=== PATIENT | female | born 1960 | race Caucasian/White ===

== ENCOUNTER 2017-02-06 20:03 | Emergency (ER) | payer OTHER, BC ==
[~2017-02-06] VITALS: Ht 160 cm; Wt 74.5 kg
[2017-02-06 20:05] VITALS: Ht 160 cm; Wt 74.5 kg
--- NOTE | 2017-02-06 20:22 | EMERGENCY ROOM VISIT NOTE ---
History Report prepared by Edilberto: Ami Manzo Under the Supervision of: Dr. Davion Bledsoe M.D. First contact with patient: 20:11 Chief Complaint: BACK PAIN Stated Complaint: MIDDLE BACK PAIN History of Present Illness The patient is a 56 year old female who presents to the Emergency Room with complaints of constant middle back pain beginning yesterday morning. The patient states that moving exacerbates the pain and that it does not radiate. She denies having numbness, weakness, chest pain, fevers, shortness of breath, as well as burning with urination and blood in urine. The patient denies any recent falls or trauma. She states that she has been taking 2 Advil every six hours which helps the pain. The patient states that she did have a bladder infection and that she finished her medication a week and a half ago. She states that she had a pituitary tumor. Source of History: patient Onset: yesterday morning Position: back Timing: constant Modifying Factors (Worsening): movement Associated Symptoms: No fevers, No chest pain, No SOB, No weakness, No numbness Review of Systems See HPI for pertinent positives & negatives. A total of 10 systems reviewed and were otherwise negative. Past Medical & Surgical Medical Problems: (1) Pituitary tumor Old medical records were reviewed. Nurse's notes were reviewed and I agree with. Family History No pertinent family history stated. Social History Smoking Status: Never Smoker Marital Status: Current/Historical Medications Scheduled Calcium-Magnesium W/ Vitamin D (Citracal Calcium+D Slow R), 1 TAB PO DAILY Hydrocortisone (Cortef), 5 MG PO DAILY Hydrocortisone (Cortef), 10 MG PO QAM Levothyroxine Sodium (Synthroid), 100 MCG PO DAILY Somatropin (Nutropin Aq Nuspin 5), 5 MG INJ DAILY Scheduled PRN Ibuprofen Tab (Advil), 400 MG PO Q6H PRN for Pain Oxycodone Immediate Rel Tab (Roxicodone Ir), 1-2 TAB PO Q4H PRN for Severe Pain Allergies Coded Allergies: Levofloxacin (Unverified Allergy, Severe, HEART RACES, 02/06/17) Penicillins (Unverified Allergy, Unknown, ., 02/06/17) TO YOUNG TO REMEMBER Meperidine (Unverified Adverse Reaction, Severe, VOMITING, 02/06/17) Physical Exam Vital Signs Date Time Temp Pulse Resp B/P (MAP) Pulse Ox O2 Delivery O2 Flow Rate FiO2 02/06/17 22:48 86 18 128/84 98 Room Air 02/06/17 22:45 36.7 89 16 128/82 97 02/06/17 20:05 36.7 89 16 128/82 97 Room Air Physical Exam General: Well developed well nourished middle-aged female who appears to be mildly uncomfortable. Pain exacerbates with movement. Breathing comfortably on room air. Normal speech HEENT: Normal cephalic atraumatic. Pupils are equal round and reactive to light. Extraocular movements are intact. Oropharynx is pink with moist mucous membranes. No swelling of the mouth lips or tongue. Neck: Supple with a midline trachea. No meningeal signs or stiffness, no JVD or bruits. No Stridor. Chest: Clear to auscultation bilaterally. No wheezes or rhonchi. No increased work of breathing. Heart: regular rate and rhythm. Abdomen: Soft, tender to palpation in right flank, nondistended without rebound guarding or rigidity. No rash. Extremities: No cyanosis clubbing or edema. No calf tenderness or assymetry Spine/Back. Non tender to palpation. No CVA tenderness Skin: Good turgor without rashes. Neurologic exam: Cranial nerves two through 12 are intact. Motor and sensation are intact and symmetrical throughout. Medical Decision & Procedures ER Provider Diagnostic Interpretation: Radiology results as stated below per my review and radiologist interpretation: ABD/PELVIS WITHOUT FOR STONE CLINICAL HISTORY: 56 years-old Female presenting with eval for rt flank pain. TECHNIQUE: Multidetector CT of the abdomen and pelvis was performed without the use of intravenous contrast. IV contrast: None. A dose lowering technique was used consistent with the principles of ALARA (as low as reasonably achievable). COMPARISON: None. CT DOSE (mGy.cm): The estimated cumulative dose is 852.15 mGy.cm. FINDINGS: Shingle Grader topogram: Unremarkable. Lung bases: Old calcified granuloma noted in the right lower lobe. Lung bases otherwise clear. Normal heart size. No pericardial or pleural effusion. Liver: Normal morphology. Normal density. Biliary: No gross biliary ductal dilatation allowing for noncontrast technique. Gallbladder contracted. Pancreas: Normal. Spleen: Parenchymal calcifications could suggest old granulomatous disease. Adrenal glands: Normal. Kidneys and ureters: Focal subcentimeter hyperdensity at the upper pole the right kidney may suggest a hemorrhagic or proteinaceous cyst. No nephrolithiasis. No hydronephrosis. Ureters normal. Bladder: Normal. Pelvic organs: Uterus surgically absent. Multiloculated 3.8 cm left adnexal cyst with thick esquivel and septations. No right adnexal lesion. Bowel: Mild stool burden throughout the normal caliber colon. Normal appendix. Inspissated material in the distal small bowel may suggest delayed transit. No bowel obstruction. Peritoneal cavity: No free fluid or intraperitoneal gas. Vasculature: Atherosclerosis of the normal caliber abdominal aorta. Lymph nodes: No gross lymphadenopathy allowing for noncontrast technique. Abdominal wall: Normal. Musculoskeletal: Degenerative changes of the spine. IMPRESSION: 1. Complex 3.8 cm left adnexal lesion likely ovarian in origin. This is concerning for an ovarian neoplasm. Gynecologic consultation should be obtained. 2. No acute intra-abdominal pathology. Specifically, no nephrolithiasis or hydronephrosis. 3. Inspissated material in the small bowel may suggest delayed transit. No bowel obstruction. The report will be called/faxed according to standard departmental protocol. Electronically signed by: Bharathi Mendes M.D. 02/06/2017 9:15 PM Dictated Date/Time: 02/06/2017 9:09 PM Laboratory Results 02/06/17 20:39 Red Blood Count 3.98, Mean Corpuscular Volume 89.7, Mean Corpuscular Hemoglobin 30.9, Mean Corpuscular Hemoglobin Concent 34.5, Mean Platelet Volume 11.0, Neutrophils (%) (Auto) 65.2, Lymphocytes (%) (Auto) 27.7, Monocytes (%) (Auto) 5.3, Eosinophils (%) (Auto) 1.5, Basophils (%) (Auto) 0.1, Neutrophils # (Auto) 6.71, Lymphocytes # (Auto) 2.85, Monocytes # (Auto) 0.54, Eosinophils # (Auto) 0.15, Basophils # (Auto) 0.01 02/06/17 20:39 Test 02/06/17 20:31 02/06/17 20:39 Urine Color YELLOW Urine Appearance CLEAR (CLEAR) Urine pH 7.0 (4.5-7.5) Urine Specific [place] 1.021 (1.000-1.030) Urine Protein NEG (NEG) Urine Glucose (UA) NEG (NEG) Urine Ketones NEG (NEG) Urine Occult Blood 1+ (NEG) Urine Nitrite NEG (NEG) Urine Bilirubin NEG (NEG) Urine Urobilinogen NEG (NEG) Urine Leukocyte Esterase MODERATE (NEG) Urine WBC (Auto) 5-10 /hpf (0-5) Urine RBC (Auto) 5-10 /hpf (0-4) Urine Hyaline Casts (Auto) 1-5 /lpf (0-5) Urine Epithelial Cells (Auto) 10-20 /lpf (0-5) Urine Bacteria (Auto) NEG (NEG) White Blood Count 10.28 K/uL (4.8-10.8) Red Blood Count 3.98 M/uL (4.2-5.4) Hemoglobin 12.3 g/dL (12.0-16.0) Hematocrit 35.7 % (37-47) Mean Corpuscular Volume 89.7 fL (80-100) Mean Corpuscular Hemoglobin 30.9 pg (25-34) Mean Corpuscular Hemoglobin Concent 34.5 g/dl (32-36) Platelet Count 224 K/uL (130-400) Mean Platelet Volume 11.0 fL (7.4-10.4) Neutrophils (%) (Auto) 65.2 % Lymphocytes (%) (Auto) 27.7 % Monocytes (%) (Auto) 5.3 % Eosinophils (%) (Auto) 1.5 % Basophils (%) (Auto) 0.1 % Neutrophils # (Auto) 6.71 K/uL (1.4-6.5) Lymphocytes # (Auto) 2.85 K/uL (1.2-3.4) Monocytes # (Auto) 0.54 K/uL (0.11-0.59) Eosinophils # (Auto) 0.15 K/uL (0-0.5) Basophils # (Auto) 0.01 K/uL (0-0.2) RDW Standard Deviation 43.9 fL (36.4-46.3) RDW Coefficient of Variation 13.3 % (11.5-14.5) Immature Granulocyte % (Auto) 0.2 % Immature Granulocyte # (Auto) 0.02 K/uL (0.00-0.02) Anion Gap 5.0 mmol/L (3-11) Est Creatinine Clear Calc Drug Dose 65.9 ml/min Estimated GFR () 81.7 Estimated GFR (Non- 70.5 BUN/Creatinine Ratio 19.2 (10-20) Calcium Level 9.2 mg/dl (8.5-10.1) Total Bilirubin 0.3 mg/dl (0.2-1) Direct Bilirubin < 0.1 mg/dl (0-0.2) Aspartate Amino Transf (AST/SGOT) 15 U/L (15-37) Alanine Aminotransferase (ALT/SGPT) 17 U/L (12-78) Alkaline Phosphatase 74 U/L (45-117) Total Protein 7.4 gm/dl (6.4-8.2) Albumin 3.7 gm/dl (3.4-5.0) Lipase 217 U/L (73-393) Laboratory studies as stated above per my review. Medications Administered Medications (Trade) Dose Ordered Sig/Kaylie Route Start Time Stop Time Status Last Admin Dose Admin Sodium Chloride 1,000 ml @ 999 mls/hr Q1H1M STAT IV 02/06/17 20:23 02/06/17 21:23 DC 02/06/17 20:50 999 MLS/HR Sodium Chloride 1,000 ml @ 150 mls/hr Q6H40M ONCE IV 02/06/17 20:23 02/07/17 03:02 02/06/17 20:50 150 MLS/HR Ketorolac Tromethamine (Toradol Inj) 30 mg NOW STAT IV 02/06/17 20:23 02/06/17 20:24 DC 02/06/17 20:49 30 MG Oxycodone HCl (Roxicodone Immediate Rel 5MG Home Pack) 1 homepack UD ONCE PO 02/06/17 22:30 02/06/17 22:31 DC 02/06/17 22:33 1 HOMEPACK ED Course 2012: Past medical records reviewed. The patient was evaluated in room A3, and a complete history and physical examination were performed. 2022: Ordered Toradol Inj 30 mg IV, Sodium Chloride 1,000 ml @ 150 mls/hr IV, Sodium Chloride 1,000 ml @ 999 mls/hr IV. 2219: The patient is more comfortable. I discussed her CT findings and she has a complex ovarian cyst on the left side, which is incidental tonight. I told her to make sure she follows up to make sure it's not a malignancy/cancer. 2229: Ordered Oxycodone HCl 1 homepack PO. 2231 Upon reevaluation, the patient is resting. I discussed the results and treatment plan with her. She verbalized agreement of the treatment plan. The patient was discharged home. Medical Decision Differentials include, but are not limited to; musculoskeletal, kidney stone, kidney infection, and electrolyte metabolic abnormality. This patient comes in as described above she has right-sided flank and back pain which is worse with movement. It is definitely reproducible. There is no rash or anything to suggest shingles. She's had no neurologic deficits and she has nothing to suggest infection. Her urinalysis is suboptimal but does not suggest infection. She has no white count or fever . She's had no acute electrode or metabolic abnormality.. She has nothing to suggest liver , gallbladder, or pancreas disease. CAT scan of her abdomen and pelvis was unremarkable. This does not appear to be in her lungs and she has nothing pleuritic or anything to suggest PE. She was given IV Toradol and was feeling better. It still hurts with movement. She is driving. I did give her a home pack of OxyIR and she can use as when she gets back to her hotel. She was warned that this could make her drowsy and do not take before drinking, driving , working. She is also given a small prescription. Incidentally on the CAT scan , she was found to have a complex ovarian cyst on the left. I talked to her at length about this. I told her she needs to have follow-up with her doctor or signal apprentice ensure this was not a malignancy. She will likely need further workup including ultrasound or potentially even a biopsy or surgery. She is from [place] is going home tomorrow. She is also told not to drive after taking the OxyIR to wait at least 6 hours. She was encouraged to return to ER if: fever, numbness or weakness, worsening of symptoms, any new problems or concerns. She was happy with the plan and was discharged to home. Medication Reconcilliation Current Medication List: was personally reviewed by me Blood Pressure Screening Patient's blood pressure: Normal blood pressure Impression Primary Impression: Right flank pain Additional Impression: Complex ovarian cyst Scribe Attestation The scribe's documentation has been prepared under my direction and personally reviewed by me in its entirety. I confirm that the note above accurately reflects all work, treatment, procedures, and medical decision making performed by me. Departure Information Dispostion Home / Self-Care Prescriptions Oxycodone Immediate Rel Tab (ROXICODONE IR) 5 Mg Tab 1-2 TAB PO Q4H Y for Severe Pain, #14 TAB Prov: Davion Bledsoe M.D. 02/06/17 Referrals No Doctor, Assigned (PCP) Forms HOME CARE DOCUMENTATION FORM, IMPORTANT VISIT INFORMATION Patient Instructions My [facility] Additional Instructions Rest Drink plenty of fluids Use Ibuprofen 600mg every 6 hours, take with food For more severe pain, use OxyIR 5 mg, 1-2 pills every 4-6 hours as needed OxyIR may make you drowsy -do not take before drinking, driving, working Return if: Increasing pain, worsening of symptoms, shortness of breath, numbness or weakness, fever or chills, any new problems or concerns You also have a complex ovarian cyst on the left which needs to be seen by a signal apprentice and have further workup likely including an ultrasound to rule out the possibility of malignancy/cancer. Please follow-up with your doctor or signal apprentice this week Problem Qualifiers
[2017-02-06] MEDS ORDERED: SODIUM CHLORIDE 0.9% 1000ML 1,000 ML IV ONE (20:23)
[2017-02-06] MEDS ORDERED: SODIUM CHLORIDE 0.9% 1000ML 1,000 ML IV STA (20:23)
[2017-02-06] MEDS ORDERED: KETOROLAC TROMETHAMINE 30 MG/ML VIAL IV STA (20:23)
[2017-02-06 20:57] LABS: URINE APPEARANCE CLEAR (CLEAR); URINE BILIRUBIN NEG (NEG); URINE COLOR YELLOW; URINE NITRITE NEG (NEG); URINE SPECIFIC GRAVITY 1.021 (1.000-1.030); UROBILINOGEN NEG (NEG)
[2017-02-06 20:58] LABS: MANUAL MICROSCOPIC REQUIRED? NO; REVIEW REQ? NO
[2017-02-06 20:58] LABS: BASO % 0.1 %; BASO ABS # 0.01 K/uL (0-0.2); COMPLETE YES; EOS % 1.5 %; HEMATOCRIT 35.7 % (37-47); IG% 0.2 %; LYMPH % 27.7 %; LYMPH ABS # 2.85 K/uL (1.2-3.4); MEAN CELL VOLUME 89.7 fL (80-100); MEAN CORPUSCULAR HEMOGLOBIN 30.9 pg (25-34); MEAN CORPUSCULAR HGB CONC 34.5 g/dl (32-36); MONO % 5.3 %; NEUT % 65.2 %; PLATELET COUNT 224 K/uL (130-400); RED BLOOD COUNT 3.98 M/uL (4.2-5.4); WHITE BLOOD COUNT 10.28 K/uL (4.8-10.8)
[2017-02-06 21:10] LABS: BLOOD UREA NITROGEN 17 mg/dl (7-18); BUN/CREATININE RATIO 19.2 (10-20); CALCIUM 9.2 mg/dl (8.5-10.1); CARBON DIOXIDE 29 mmol/L (21-32); CHLORIDE 106 mmol/L (98-107); GLUCOSE 107 mg/dl (70-99); POTASSIUM 3.9 mmol/L (3.5-5.1); SODIUM 140 mmol/L (136-145)
--- NOTE | 2017-02-06 21:16 | DIAGNOSTIC IMAGING REPORT ---
ABD/PELVIS WITHOUT FOR STONE CLINICAL HISTORY: 56 years-old Female presenting with eval for rt flank pain. TECHNIQUE: Multidetector CT of the abdomen and pelvis was performed without the use of intravenous contrast. IV contrast: None. A dose lowering technique was used consistent with the principles of ALARA (as low as reasonably achievable). COMPARISON: None. CT DOSE (mGy.cm): The estimated cumulative dose is 852.15 mGy.cm. FINDINGS: Lighting Adviser topogram: Unremarkable. Lung bases: Old calcified granuloma noted in the right lower lobe. Lung bases otherwise clear. Normal heart size. No pericardial or pleural effusion. Liver: Normal morphology. Normal density. Biliary: No gross biliary ductal dilatation allowing for noncontrast technique. Gallbladder contracted. Pancreas: Normal. Spleen: Parenchymal calcifications could suggest old granulomatous disease. Adrenal glands: Normal. Kidneys and ureters: Focal subcentimeter hyperdensity at the upper pole the right kidney may suggest a hemorrhagic or proteinaceous cyst. No nephrolithiasis. No hydronephrosis. Ureters normal. Bladder: Normal. Pelvic organs: Uterus surgically absent. Multiloculated 3.8 cm left adnexal cyst with thick esquivel and septations. No right adnexal lesion. Bowel: Mild stool burden throughout the normal caliber colon. Normal appendix. Inspissated material in the distal small bowel may suggest delayed transit. No bowel obstruction. Peritoneal cavity: No free fluid or intraperitoneal gas. Vasculature: Atherosclerosis of the normal caliber abdominal aorta. Lymph nodes: No gross lymphadenopathy allowing for noncontrast technique. Abdominal wall: Normal. Musculoskeletal: Degenerative changes of the spine. IMPRESSION: 1. Complex 3.8 cm left adnexal lesion likely ovarian in origin. This is concerning for an ovarian neoplasm. Gynecologic consultation should be obtained. 2. No acute intra-abdominal pathology. Specifically, no nephrolithiasis or hydronephrosis. 3. Inspissated material in the small bowel may suggest delayed transit. No bowel obstruction. The report will be called/faxed according to standard departmental protocol. Electronically signed by: Bharathi Mendes M.D. 02/06/2017 9:15 PM Dictated Date/Time: 02/06/2017 9:09 PM
[2017-02-06] MEDS ORDERED: LEVO100T PO (21:39)
[2017-02-06] MEDS ORDERED: [UNRECOGNIZED DRUG - CODE] INJ (21:40)
[2017-02-06] MEDS ORDERED: CALC1TAB56 PO (21:43)
[2017-02-06] MEDS ORDERED: IBUP-103 PO (21:43)
[2017-02-06] MEDS ORDERED: HYDR5TAB57 PO ×2 (21:47)
[2017-02-06 22:00] LABS: ALKALINE PHOSPHATASE 74 U/L (45-117); ALT/SGPT 17 U/L (12-78); AST/SGOT 15 U/L (15-37)
[2017-02-06] MEDS ORDERED: OXYC1TAB3 PO (22:20)
[2017-02-06] MEDS ORDERED: OXYCODONE IR HOME PACK PO ONE (22:30)
[2017-02-06 22:45] VITALS: TEMP 36.7
[2017-02-06 22:48] VITALS: BP 128/84; PULSE 86; O2SAT 98
== END 2017-02-06 22:46 | disposition home or self-care (01) ==
LOC: C.EDB 20:05 → C.EDA 22:46
DX: N83.209 Unspecified ovarian cyst, unspecified side (principal); R10.30 Lower abdominal pain, unspecified; E23.6 Other disorders of pituitary gland; Z79.899 Other long term (current) drug therapy; Z88.0 Allergy status to penicillin; Z88.8 Allergy status to other drugs, medicaments and biological substances